=== PATIENT | male | born 1955 | race Caucasian/White ===

== ENCOUNTER 2024-12-09 10:03 | Emergency (ER) | payer MEDICARE, MEDICAID, SELFPAY ==
[2024-12-09 10:12] VITALS: BP 115/68; PULSE 84; RESP 16; TEMP 36.6; O2SAT 92
[2024-12-09 10:14] VITALS: BMI 18.7
--- NOTE | 2024-12-09 10:14 | PD.EDMALE ---
ED Male Genitalurinary RME/HPI General Chief complaint: Urogenital-Male Stated complaint: NEED CATHETER CHANGED Time Seen by Provider: 12/09/24 10:10 Source: patient Arrival date/time: 12/09/24 10:03 69-year-old male with a history of BPH presents to the emergency room with a chief complaint of needing his catheter changed. Patient states he just establish care with his urologist, he was seen at [facility] recently and given antibiotics for a urinary tract infection, and presents to the emergency room only to get his leg bag changed as he is supposed to do this every 3 weeks and it has been 2 months since his last change Mode of arrival: ambulatory Limitations: no limitations Related Data Home Medications ?Medication ?Instructions ?Recorded ?Confirmed No Known Home Medications 06/15/20 06/15/20 Allergies Allergy/AdvReac Type Severity Reaction Status Date / Time No Known Allergies Allergy Verified 12/09/24 10:04 Past Medical History Past Medical History CARDIAC: Negative Congestive Heart Failure or Hypertension RESPIRATORY: Negative Chronic Obstructive Pulmonary Disease (COPD) GENITOURINARY: Negative Renal Disease ENT: Negative Glaucoma ENDOCRINE: Negative Diabetes Mellitus Type 1 or Diabetes Mellitus Type 2 HEMATOLOGIC: Negative Blood Disorders Social History SMOKING STATUS: Light (< 1 pack/day) ED Exam General Limitations: Present no limitations General appearance: Present alert and in no apparent distress Head Head exam: Present atraumatic Eye Eye exam: Present normal appearance, PERRL and EOMI ENT ENT exam: Present normal exam, normal oropharynx and mucous membranes moist Neck Neck exam: Present normal inspection, full ROM and trachea midline Chest Chest inspection: Present normal inspection and symmetric chest wall rise Respiratory Respiratory exam: Present normal lung sounds bilaterally Cardiovascular Cardiovascular exam: Present regular rate, normal rhythm and normal heart sounds Abdominal Exam Abdominal exam: Present soft and normal bowel sounds Extremities Exam Extremities exam: Present normal inspection and full ROM Back Exam Back exam: Present normal inspection and full ROM Neurological Exam Neurological exam: Present alert, oriented X3 and CN II-XII intact Psychiatric Psychiatric exam: Present normal affect and normal mood Skin Skin exam: Present warm, dry, intact and normal color Course Quality Measures none Orders Category Date Time Status Catheter [Urinary Catheter] QS Care 12/09/24 10:13 Completed Son to Leg Bag Routine Care 12/09/24 10:14 Ordered Vital Signs Vital signs: Vital Signs Temperature 97.9 F 12/09/24 10:12 Pulse Rate 84 12/09/24 10:12 Respiratory Rate 16 12/09/24 10:12 Blood Pressure 115/68 12/09/24 10:12 Pulse Oximetry (%) 92 L 12/09/24 10:12 Oxygen Delivery Method Room Air 12/09/24 10:12 O2 saturation 92% within normal limit Urogenital - Male MDM Narrative MDM Narrative:: 69-year-old male with a history of COPD, and BPH presents to the emergency room with a chief complaint of needing his catheter changed. Patient states he just establish care with his urologist, he was seen at [facility] recently and given antibiotics for a urinary tract infection, and presents to the emergency room only to get his leg bag changed as he is supposed to do this every 3 weeks and it has been 2 months since his last change Patient is hemodynamically stable and in no apparent distress Patient's catheter and leg bag was replaced with no complications. Patient is on Bactrim for urinary tract infection that they found at [facility] 3 days ago. Patient was educated to follow-up with his urologist and primary care provider and return to the emergency room for any evidence of worsening signs or symptoms Patient data External records reviewed:: [facility] previous records Clinical information provided by:: patient Social determinants that could affect healthcare access:: none Patient has the following chronic illnesses:: BPH How is presenting disease/condition affected by chronic disease/condition?: caused by Evaluation data The following diagnostics were reviewed and interpreted by me:: lab results and radiology exam(s) Lab and/or radiology exams considered but not ordered:: Lab results and radiology exams considered and ordered Interpretation Summary: N/A Medications / Prescriptions Medications or Prescriptions considered but not ordered:: No medication given Medication administrations:: No medication given Consultations Consultation(s) initiated? (list below): No Diagnosis Urogenital Male Differential Diagnosis: urinary tract infection, acute retention of urine and other (Son replacement) Most likely diagnosis given after review of the tests above:: Son replacement Admission Indicated Admission indicated?: not indicated Admission Request Was there a request for admission?: No Disposition Plan Disposition Plan: Discharge Discharge Attestation Discharge Attestation: The patient and all family members were given an opportunity to ask questions and understood the discharge instructions. Discharge instructions specifically effects, indications for sooner follow up or return to the emergency department, and the expected course of current diagnosis. Patient condition: Stable Discharge Plan Plan Patient Disposition: HOME (Self Care) Disposition Comment: Stable Prescriptions/Referrals Prescriptions/Med Rec: No Action No Known Home Medications Problem List Clinical Impression: Encounter for Son catheter replacement Patient/Caregiver Discharge Instructions Additional Instructions: Please follow-up with your urologist and primary care provider in the next 24 to 48 hours. Please continue to take your antibiotics that were prescribed by your primary care provider for urinary tract infection For any evidence of worsening signs or symptoms return to the emergency room immediately Print Language: [place]an Stand Alone Forms: Sylvia Award Info., Patient Portal Info Letter PA/FOOD AND BEVERAGE MANAGER Supervising Physician PA/FOOD AND BEVERAGE MANAGER Supervising Physician: Dr. Orta
== END 2024-12-09 12:34 | disposition home or self-care (01) ==
LOC: SERX 10:49
PROVIDERS: Emergency Provider Emergency Medicine
DX: Z46.6 Encounter for fitting and adjustment of urinary device (principal); N40.0 Benign prostatic hyperplasia without lower urinary tract symptoms
CPT/HCPCS: 51702; 99283